=== PATIENT | male | born 1955 | race Caucasian/White ===

== ENCOUNTER 2016-11-25 08:19 | Emergency (ER) | payer BC ==
--- NOTE | 2016-11-25 08:32 | Emergency Department Record ---
History of Present Illness - General Chief Complaint: Chest Pain Stated Complaint: RIB PAIN LEFT SIDE Time Seen by Provider: 11/25/16 08:31 Source: Patient Mode of Arrival: Ambulatory Limitations: No limitations - History of Present Illness Initial Comments: The patient was coughing and sneezing yesterday and felt L lateral lower rib pain shortly after. It is a very mild dull pain when not moving but becomes sharp and stabbing with any movement to the R, or bending, twisting, or coughing. He denies any anterior L chest pain, SOB, VOI, sweating or nausea. The patient has no cardiac hx and no hx of CP with exertion, or SANTILLAN. MD Complaint: Other Onset/Timin -: Days(s) Onset: Other Pain Location: Left chest Severity: Moderate Quality: Sharp Consistency: Intermittent, Now resolved Improves With: Remaining still Worsens With: Movement, Palpation - Related Data Home Medications Medication Instructions Recorded Confirmed Last Taken Albuterol Sulfate [Proair Hfa] 2 puff INH ASDIR PRN 10/10/14 11/25/16 11/25/16 Amlodipine/Valsartan [Exforge 1 tab PO QPM 10/10/14 11/25/16 11/25/16 10-160 mg Tablet] Atorvastatin Calcium [Lipitor] 10 mg PO QPM 10/10/14 11/25/16 11/25/16 Albuterol Sulfate 0.083% [Neb] 3 ml NEB .EVERY 4-6 HOURS PRN 09/08/15 11/25/16 11/25/16 Aspirin Chewable 81 mg PO QPM 09/08/15 11/25/16 11/25/16 Meloxicam [Mobic] 15 mg PO DAILY 09/08/15 11/25/16 11/25/16 Tiotropium Br/Olodaterol HCl 4 gm IH DAILY PRN 07/25/16 11/25/16 11/25/16 [Stiolto Respimat Inhal [place]] Sitagliptin Phos/Metformin HCl 1 each PO DAILY 11/25/16 11/25/16 11/25/16 [Janumet Xr 50-500 mg Tablet] Previous Rx's Medication Instructions Recorded Hydrocodone/Acetaminophen [Percival 1 - 2 each PO QID #20 tablet 11/25/16 5-325 Tablet] Allergies Allergy/AdvReac Type Severity Reaction Status Date / Time No Known Drug Allergies Allergy Verified 11/25/16 08:24 Review of Systems Constitutional: Denies: Chills, Fever Eyes: Denies: Eye discharge ENT: Denies: Congestion Respiratory: Reports: Cough. Denies: Dyspnea Cardiovascular: Denies: Arrhythmia Past Medical History - SOCIAL HISTORY Smoking Status: Light tobacco smoker (<10/day) - RESPIRATORY Hx Asthma: Yes (good control with meds) - CARDIOVASCULAR Hx Hypertension: Yes (good control with med) - NEURO Hx Neuro Disorders: No - GI Hx GI Disorders: Yes - Hx Genitourinary Disorders: No - ENDOCRINE Hx Endocrine Disorders: No - MUSCULOSKELETAL Hx Arthritis: Yes (hands & lt hip pain) - PSYCH Hx Psych Problems: Yes - HEMATOLOGY/ONCOLOGY Hx Hematology/Oncology Disorders: No Family Medical History Family Hx Comment (NOT TO BE USED IN PLACE OF ITEMS BELOW): Pt. was adopted. Physical Exam - General General Appearance: Alert, Oriented x3, Cooperative, No acute distress - Head Head exam: Atraumatic, Normocephalic, Normal inspection - Eye Eye exam: Normal appearance, PERRL - ENT Throat exam: Normal inspection. negative: Tonsillar erythema, Tonsillar exudate - Neck Neck exam: Normal inspection, Full ROM. negative: Tenderness - Respiratory Respiratory exam: Normal lung sounds bilaterally, Chest wall tenderness (The pain is 100% reproducible with palpation of the L lower ribs T9-10 in the anterior axillary line.), Other (The pain is also reproduced with any coughing, bending forward or twisting to the R.). negative: Respiratory distress - Cardiovascular Cardiovascular Exam: Regular rate, Normal rhythm, Normal heart sounds - GI/Abdominal GI/Abdominal exam: Soft, Normal bowel sounds. negative: Tenderness - Extremities Extremities exam: Normal inspection, Full ROM, Normal capillary refill. negative: Tenderness Image of Full Body: 1 - Pain location with palpation. Course Vital Signs 11/25/16 08:29 Temperature 97.6 F Pulse Rate [ 64 Pulse Ox Probe] Respiratory 16 Rate Blood Pressure 179/92 [Left Arm] Pulse Ox 96 - Reevaluation(s) Reevaluation #1: The patient is doing well. I did discuss the EKG and xray results. We will place the patient on Percival for pain since he has had Mobic with mild side affects in the past. 11/25/16 09:42 Medical Decision Making - Data Complexity MDM Data: X-Ray Ordered and/or Reviewed, EKG Ordered and/or Reviewed - EKG Data -: EKG Interpreted by Me EKG: No Acute Changes, Unchanged From Previous - Radiology Data Radiology results: Report reviewed (L Ribs and chest: No acute dz process.) Disposition Disposition: Discharge Clinical Impression: Rib Pain on Left Side Disposition: Home, Self-Care Condition: (1) Good Instructions: Chest Wall Pain (ED) Additional Instructions: Please take the Percival for pain. Please see your PCP if not better in 2-3 days. Return to the ER for any increased pain, fever, worsening cough or any trouble breathing. Prescriptions: Hydrocodone/Acetaminophen [Percival 5-325 Tablet] 1 - 2 each PO QID #20 tablet Forms: Patient Portal Access Time of Disposition: 09:45
--- NOTE | 2016-11-28 15:19 | RADIOLOGY REPORT ---
EXAM: LEFT RIB SERIES HISTORY: PATIENT HAS LEFT SIDED RIB PAIN. TECHNIQUE: AP view of the chest and four views of the left ribs were provided along with the comparison x-ray of the chest dated 07/25/16. FINDINGS: The cardiomediastinal silhouette is within normal limits for size and contour. The desmond appear unremarkable. There is no radiographic evidence of a focal infiltrate or pleural effusion. No pneumothorax is noted. There is no radiographic evidence of a fracture or dislocation of the left ribs. IMPRESSION: NO RADIOGRAPHIC EVIDENCE OF AN ACUTE INTRATHORACIC PROCESS OR FRACTURE OR DISLOCATION OF THE LEFT RIBS. IF THERE IS FURTHER CLINICAL CONCERN THEN A BONE SCAN CAN BE OBTAINED FOR FURTHER EVALUATION. JOB NUMBER: [id number] MTDD
== END 2016-11-25 09:59 | disposition home or self-care (01) ==
LOC: ER 08:19
DX: R07.81 Pleurodynia (principal); R05 Cough; I10 Essential (primary) hypertension
CPT/HCPCS: 93005; 93010; 99284

== ENCOUNTER 2017-03-30 02:02 | Emergency (ER) | payer BC ==
[2017-03-30] MEDS ORDERED: IPRATROPIUM/ALBUTEROL (0.5MG/3MG) NEB INH ONE (02:10)
[2017-03-30] MEDS ORDERED: AZITHROMYCIN 500 MG TABLET PO ONE (02:10)
[2017-03-30] MEDS ORDERED: METHYLPREDNISOLONE PF 125MG/VIAL IM ONE (02:10)
--- NOTE | 2017-03-30 02:16 | Emergency Department Record ---
History of Present Illness - General Stated Complaint: COUGH Time Seen by Provider: 03/30/17 02:04 Source: Patient Mode of Arrival: Ambulatory Limitations: No limitations - History of Present Illness Initial Comments: 62 yo male with a history of COPD presents with cough with yellow sputum for 2 days. No fevers. No hemoptysis. He was formerly a heavy smoker but now rarely smokes. No nausea, vomiting or diarrhea. No chest pain. It does hurt or feel raw to cough. He has had a prior history of pneumonia. MD Complaint: Cough, Shortness of breath -: Days(s) (2) Severity: Moderate Consistency: Constant Improves With: Nothing Worsens With: Coughing Known History Of: COPD Context: Allergen exposure (worsened after mowing the yard) Associated Symptoms: Cough - Related Data Home Medications Medication Instructions Recorded Confirmed Last Taken Albuterol Sulfate [Proair Hfa] 2 puff INH ASDIR PRN 10/10/14 03/30/17 03/29/17 Amlodipine/Valsartan [Exforge 1 tab PO QPM 10/10/14 03/30/17 03/29/17 10-160 mg Tablet] Atorvastatin Calcium [Lipitor] 10 mg PO QPM 10/10/14 03/30/17 03/29/17 Albuterol Sulfate 0.083% [Neb] 3 ml NEB .EVERY 4-6 HOURS PRN 09/08/15 03/30/17 03/29/17 Aspirin Chewable 81 mg PO QPM 09/08/15 03/30/17 03/29/17 Meloxicam [Mobic] 15 mg PO DAILY 09/08/15 03/30/17 03/29/17 Tiotropium Br/Olodaterol HCl 4 gm IH DAILY PRN 07/25/16 03/30/17 03/29/17 [Stiolto Respimat Inhal [place]] Sitagliptin Phos/Metformin HCl 1 each PO DAILY 11/25/16 03/30/17 03/29/17 [Janumet Xr 50-500 mg Tablet] Previous Rx's Medication Instructions Recorded Albuterol Sulfate [Proair 90 mcg IH Q4H PRN #1 aer.[email or web address] 03/30/17 Respiclick] Azithromycin [Zithromax] 250 mg PO DAILY #4 tablet 03/30/17 Prednisone [Prednisone 20Mg] 20 mg PO BID #10 tab 03/30/17 Allergies Allergy/AdvReac Type Severity Reaction Status Date / Time No Known Drug Allergies Allergy Verified 11/25/16 08:24 Review of Systems Constitutional: Denies: Chills, Fever, Malaise, Night sweats, Weakness Eyes: Denies: Eye discharge, Eye pain, Photophobia, Vision change ENT: Reports: Congestion. Denies: Throat pain Respiratory: Reports: Cough, Wheezes. Denies: Hemoptysis Cardiovascular: Denies: Chest pain, Palpitations, Syncope Endocrine: Denies: Fatigue Gastrointestinal: Denies: Abdominal pain, Diarrhea, Nausea, Vomiting Genitourinary: Denies: Dysuria, Frequency, Hematuria Musculoskeletal: Denies: Arthralgia, Back pain, Joint swelling, Myalgia, Neck pain Skin: Denies: Bruising, Change in color, Rash Neurological: Denies: Headache, Numbness, Weakness Psychiatric: Denies: Anxiety Hematological/Lymphatic: Denies: Blood Clots, Easy bleeding, Easy bruising, Swollen glands Past Medical History - SOCIAL HISTORY Smoking Status: Light tobacco smoker (<10/day) - RESPIRATORY Hx Asthma: Yes (good control with meds) - CARDIOVASCULAR Hx Hypertension: Yes (good control with med) - NEURO Hx Neuro Disorders: No - GI Hx GI Disorders: Yes - Hx Genitourinary Disorders: No - ENDOCRINE Hx Endocrine Disorders: No - MUSCULOSKELETAL Hx Arthritis: Yes (hands & lt hip pain) - PSYCH Hx Psych Problems: Yes - HEMATOLOGY/ONCOLOGY Hx Hematology/Oncology Disorders: No Family Medical History Family Hx Comment (NOT TO BE USED IN PLACE OF ITEMS BELOW): Pt. was adopted. Physical Exam - General General Appearance: Alert, Oriented x3, Cooperative, No acute distress, Other ( No conversational dyspnea) Limitations: No limitations - Head Head exam: Normal inspection - Eye Eye exam: Normal appearance. negative: Conjunctival injection, Periorbital swelling - ENT ENT exam: Normal exam, Mucous membranes moist, Normal orophraynx Ear exam: Normal external inspection Nasal Exam: Normal inspection Mouth exam: Normal external inspection Teeth exam: Normal inspection - Neck Neck exam: Normal inspection, Full ROM. negative: Tenderness - Respiratory Respiratory exam: Decreased breath sounds, Prolonged expiratory, Wheezes, Other (speeks in full sentences). negative: Normal lung sounds bilaterally, Accessory muscle use, Respiratory distress, Rhonchi, Stridor - Cardiovascular Cardiovascular Exam: Regular rate, Normal rhythm, Normal heart sounds - GI/Abdominal GI/Abdominal exam: Soft. negative: Tenderness - Rectal Rectal exam: Deferred - exam: Deferred - Extremities Extremities exam: Normal inspection, Full ROM, Normal capillary refill. negative: Pedal edema, Tenderness - Neurological Neurological exam: Alert, Normal gait, Oriented X3, Reflexes normal - Psychiatric Psychiatric exam: Normal affect, Normal mood - Skin Skin exam: Dry, Intact, Normal color, Warm Course - Reevaluation(s) Reevaluation #1: The patient was seen and examined for cough with yellow sputum with a Hx of COPD Duoneb, Solumedrol, and Zithromax ordered 03/30/17 02:15 Reevaluation #2: Mild wheeze after the Duoneb. Much improved. 03/30/17 02:27 Reevaluation #3: The CXR was preliminarily read by me. No acute process or infiltrate. 03/30/17 02:40 At DC the patient states he feels much improved. He does not feel labored or short of breath. He is ready for DC. 03/30/17 Disposition Disposition: Discharge Clinical Impression: COPD exacerbation Disposition: Home, Self-Care Condition: (1) Good Instructions: COPD (Chronic Obstructive Pulmonary Disease) (ED) Additional Instructions: Call Dr Perez for close follow up of you ER visit Return if worse, fever, short of breath or any new symptoms or concerns Prescriptions: Albuterol Sulfate [Proair [place]] 90 mcg IH Q4H PRN #1 aer.pow.ba PRN Reason: Wheezing Azithromycin [Zithromax] 250 mg PO DAILY #4 tablet Prednisone [Prednisone 20Mg] 20 mg PO BID #10 tab Forms: Patient Portal Access Time of Disposition: 02:41
--- NOTE | 2017-04-01 16:10 | RADIOLOGY REPORT ---
DATE: 03/30/2017. EXAM: TWO-VIEW CHEST. HISTORY: Cough. TECHNIQUE: Frontal and lateral views of the chest. COMPARISON: Chest dated 11/25/2016. FINDINGS: The heart size is normal. The lungs are clear. No pneumothorax. IMPRESSION: NEGATIVE CHEST. JOB NUMBER: [id number] MTDD
== END 2017-03-30 03:05 | disposition home or self-care (01) ==
LOC: ER 02:02
DX: J44.1 Chronic obstructive pulmonary disease with (acute) exacerbation (principal); R06.02 Shortness of breath; F17.210 Nicotine dependence, cigarettes, uncomplicated
CPT/HCPCS: 71020; 94640; 96372; 99283; 99284; J2930

== ENCOUNTER 2017-11-26 01:55 | Emergency (ER) | payer BC ==
[2017-11-26] MEDS ORDERED: AZITHROMYCIN 500 MG TABLET PO ONE (02:03)
[2017-11-26] MEDS ORDERED: PREDNISONE 20 MG TAB PO ONE (02:03)
--- NOTE | 2017-11-26 02:06 | Emergency Department Record ---
History of Present Illness - General Chief complaint: ENT Stated complaint: CONGESTED Time Seen by Provider: 11/26/17 02:03 Source: Patient Mode of Arrival: Ambulatory Limitations: No limitations - History of Present Illness Initial comments: 62 yo male presents to ED for evaluation of "bronchitis". Patient reports a history of COPD and asthma, reports that he has the same symptoms 1-2 times a year. Patient reports night sweats, denies fevers, chills, or productive cough symptoms. MD complaint: Other Onset/Timin -: Days(s) Severity: Moderate Consistency: Intermittent Improves with: Other (Nebulizer) Worsens with: None Associated Symptoms: Cough - Related Data Previous Rx's Medication Instructions Recorded Azithromycin [Zithromax] 250 mg PO DAILY #4 tablet 11/26/17 Prednisone [Prednisone 20Mg] 20 mg PO TID #12 tab 11/26/17 Allergies Allergy/AdvReac Type Severity Reaction Status Date / Time No Known Drug Allergies Allergy Verified 11/25/16 08:24 Review of Systems Constitutional: Denies: Chills, Fever, Malaise, Night sweats Eyes: Denies: Eye discharge, Eye pain ENT: Reports: Congestion. Denies: Ear pain Respiratory: Reports: Cough, Wheezes. Denies: Dyspnea Cardiovascular: Denies: Chest pain, Dyspnea on exertion Endocrine: Denies: Fatigue, Heat or cold intolerance Gastrointestinal: Denies: Abdominal pain, Nausea, Vomiting Genitourinary: Denies: Incontinence, Retention Musculoskeletal: Denies: Arthralgia, Back pain, Gout, Joint swelling Skin: Denies: Bruising, Change in color Neurological: Denies: Abnormal gait, Confusion, Headache, Seizure Psychiatric: Denies: Anxiety Hematological/Lymphatic: Denies: Anemia, Blood Clots Past Medical History - SOCIAL HISTORY Smoking Status: Light tobacco smoker (<10/day) - RESPIRATORY Hx Asthma: Yes (good control with meds) - CARDIOVASCULAR Hx Hypertension: Yes (good control with med) - NEURO Hx Neuro Disorders: No - GI Hx GI Disorders: Yes - Hx Genitourinary Disorders: No - ENDOCRINE Hx Endocrine Disorders: No - MUSCULOSKELETAL Hx Arthritis: Yes (hands & lt hip pain) - PSYCH Hx Psych Problems: Yes - HEMATOLOGY/ONCOLOGY Hx Hematology/Oncology Disorders: No Family Medical History Family Hx Comment (NOT TO BE USED IN PLACE OF ITEMS BELOW): Pt. was adopted. Physical Exam - General General Appearance: Alert, Oriented x3, Cooperative, No acute distress Limitations: No limitations - Head Head exam: Atraumatic, Normocephalic, Normal inspection Head exam detail: negative: Abrasion, Contusion, Soto's sign, General tenderness, Hematoma, Laceration - Eye Eye exam: Normal appearance. negative: Conjunctival injection, Periorbital swelling, Periorbital tenderness, Scleral icterus - ENT Ear exam: negative: Auricular hematoma, Auricular trauma Nasal Exam: negative: Active bleeding, Discharge, Dried blood, Foreign body Mouth exam: negative: Drooling, Laceration, Tongue elevation - Neck Neck exam: Normal inspection. negative: Meningismus, Tenderness - Respiratory Respiratory exam: Decreased breath sounds, Wheezes. negative: Rales, Respiratory distress, Rhonchi, Stridor - Cardiovascular Cardiovascular Exam: Regular rate, Normal rhythm, Normal heart sounds - GI/Abdominal GI/Abdominal exam: Soft. negative: Distended, Rebound, Rigid, Tenderness - Rectal Rectal exam: Deferred - exam: Deferred - Extremities Extremities exam: Normal inspection. negative: Pedal edema, Tenderness - Back Back exam: Denies: CVA tenderness (R), CVA tenderness (L) - Neurological Neurological exam: Alert, Normal gait, Oriented X3 - Psychiatric Psychiatric exam: Normal affect, Normal mood - Skin Skin exam: Normal color. negative: Abrasion Type of lesion: negative: abrasion Course - Reevaluation(s) Reevaluation #1: 11/26/17 02:09 Patient has no respiratory distress on examination, symptoms appear c/w bronchitis. Will treat with Zithromax and Prednisone as directed, reports that he has nebulizer and albuterol at home. Disposition Disposition: Discharge Clinical Impression: Bronchitis Disposition: Home, Self-Care Condition: (2) Stable Instructions: Acute Bronchitis (ED) Additional Instructions: Return to ED if your symptoms worsen or if you have any concerns. Prednisone and Zithromax as directed. Follow-up with your family doctor in 3-5 days as directed. Prescriptions: Azithromycin [Zithromax] 250 mg PO DAILY #4 tablet Prednisone [Prednisone 20Mg] 20 mg PO TID #12 tab Forms: Patient Portal Access Time of Disposition: 02:06 Quality - Quality Measures Quality Measures: N/A - Blood Pressure Screening Does Patient Have Any of the Following: Active Dx of HTN Systolic Measurement: ~ Screening for High Blood Pressure: Patient Exclusion, Hx of HTN [U0991]
[2017-11-26] MEDS ORDERED: IPRATROPIUM/ALBUTEROL (0.5MG/3MG) NEB INH ONE (02:19)
== END 2017-11-26 02:40 | disposition home or self-care (01) ==
LOC: ER 01:55
DX: J20.9 Acute bronchitis, unspecified (principal); I10 Essential (primary) hypertension; F17.210 Nicotine dependence, cigarettes, uncomplicated
CPT/HCPCS: 99283 ×2; 94640; J7512

== ENCOUNTER 2017-12-29 05:32 | Emergency (ER) | payer BC ==
[2017-12-29] MEDS ORDERED: MECLIZINE 25 MG TABLET PO ONE (05:57)
[2017-12-29] MEDS ORDERED: 0.9 % SODIUM CHLORIDE 1,000 ML BAG IV ONE (05:57)
--- NOTE | 2017-12-29 05:58 | Emergency Department Record ---
History of Present Illness - General Chief Complaint: Dizziness Stated Complaint: DIZZINESS Time Seen by Provider: 12/29/17 05:51 Source: Patient Mode of Arrival: Ambulatory Limitations: No limitations - History of Present Illness Initial Comments: The patient is here due to waking up an hour ago and feeling dizzy. He describes it as a sense of his balance being off. The symptoms seem to be worse with turning his head to the L. He denies any arm or leg numbness, weakness, [place] , visual changes, trouble with his speech or difficulty swallowing. The patient also denies any CP, SOB, OVI, or head trauma. He has had similar problems in the past and was told it was Vertigo. The patient did drive here to the ER with no difficulty. MD Complaint: Dizziness Onset/Timin -: Minutes(s) Timing: Awoke with symptoms, Sudden onset Description: Difficulty walking, Sense of movement Severity: Moderate Improves With: Nothing Worsens With: Nothing - [place] Coma Scale Eye Response: (4) Open spontaneously Motor Response: (6) Obeys commands Verbal Response: (5) Oriented [place] Total: 15 - Related Data Previous Rx's Medication Instructions Recorded Meclizine HCl [Antivert] 25 mg PO Q8H #21 tablet 12/29/17 Allergies Allergy/AdvReac Type Severity Reaction Status Date / Time No Known Drug Allergies Allergy Verified 11/25/16 08:24 Travel Screening - Travel/Exposure Within Last 30 Days Have you traveled within the last 30 days?: No Review of Systems Constitutional: Denies: Chills, Fever Eyes: Denies: Eye discharge ENT: Denies: Congestion Respiratory: Denies: Cough, Dyspnea Past Medical History - SOCIAL HISTORY Smoking Status: Light tobacco smoker (<10/day) Alcohol Use: None Drug Use: None - RESPIRATORY Hx Respiratory Disorders: Yes Hx Asthma: Yes (good control with meds) - CARDIOVASCULAR Hx Cardio Disorders: Yes Hx Hypertension: Yes (good control with med) - NEURO Hx Neuro Disorders: No - GI Hx GI Disorders: Yes Hx Abdominal Pain: Yes (umbilical hernia "ruptured") - Hx Genitourinary Disorders: No - ENDOCRINE Hx Endocrine Disorders: No Hx Diabetes: Yes - MUSCULOSKELETAL Hx Musculoskeletal Disorders: Yes Hx Arthritis: Yes (hands & lt hip pain) - PSYCH Hx Psych Problems: Yes Hx Anxiety: Yes ("occasionally") - HEMATOLOGY/ONCOLOGY Hx Hematology/Oncology Disorders: No Family Medical History Any Significant Family History?: No Family Hx Comment (NOT TO BE USED IN PLACE OF ITEMS BELOW): Pt. was adopted. Physical Exam - General General Appearance: Alert, Oriented x3, Cooperative, No acute distress - Head Head exam: Atraumatic, Normocephalic, Normal inspection - Eye Eye exam: Normal appearance, PERRL, EOMI, Nystagmus (to the L.) - ENT ENT exam: Normal exam, Mucous membranes moist, Normal external ear exam, Normal orophraynx, TM's normal bilaterally Throat exam: Normal inspection. negative: Tonsillar erythema, Tonsillar exudate - Neck Neck exam: Normal inspection, Full ROM, Other (Neg carotid bruits.). negative: Tenderness - Respiratory Respiratory exam: Normal lung sounds bilaterally. negative: Respiratory distress - Cardiovascular Cardiovascular Exam: Regular rate, Normal rhythm, Normal heart sounds - GI/Abdominal GI/Abdominal exam: Soft, Normal bowel sounds. negative: Tenderness - Extremities Extremities exam: Normal inspection, Full ROM, Normal capillary refill. negative: Tenderness - Neurological Neurological exam: Alert, Normal gait, Oriented X3, Reflexes normal, Other (Neg drift or rhomberg exams.). negative: Abnormal gait, Altered, Motor sensory deficit Course Vital Signs 12/29/17 05:36 Temperature 97.5 F L Pulse Rate 74 Respiratory 20 Rate Blood Pressure 178/96 Pulse Ox 94 L - Reevaluation(s) Reevaluation #1: The patient is doing better at this time. He is about 50% improved and is able to move his head around with very little dizziness presently. 12/29/17 06:30 Reevaluation #2: The patient is doing a lot better at this time. His dizziness is now 90% resolved and he is able to get up from the bed with no difficulty or balance issues. I did discuss the liver enzyme abnormality with him and the need for F/ U with his PCP. 12/29/17 06:42 Medical Decision Making - Data Complexity MDM Data: Labs Ordered and/or Reviewed, X-Ray Ordered and/or Reviewed, EKG Ordered and/or Reviewed - Lab Data Result diagrams: 12/29/17 06:00 12/29/17 06:00 - EKG Data -: EKG Interpreted by Me EKG: No Acute Changes, Unchanged From Previous - Radiology Data Radiology results: Report reviewed (Head CT: Neg) Disposition Disposition: Discharge Clinical Impression: Vertigo Disposition: Home, Self-Care Condition: (2) Stable Instructions: Dizziness (ED) Additional Instructions: Please continue your regular medicines and use the Antivert as directed. Please see your family doctor next week for recheck and to have your liver enzymes abnormality evaluated further. Return to the ER for any worsening symptoms. Prescriptions: Meclizine HCl [Antivert] 25 mg PO Q8H #21 tablet Forms: Patient Portal Access Time of Disposition: 06:45 Quality - Quality Measures Quality Measures: N/A - Blood Pressure Screening View Details: Yes Does Patient Have Any of the Following: Active Dx of HTN Blood Pressure Classification: Hypertensive Reading Systolic Measurement: 178 Diastolic Measurement: 96 Screening for High Blood Pressure: Patient Exclusion, Hx of HTN [G9744]
[2017-12-29 06:09] LABS: BASO % 0.6 % (0-6); EOS % 3.4 % (0-6); GRAN % 57.1 % (47-80); HEMATOCRIT 46.7 % (42.0-52.0); HEMOGLOBIN 15.7 gm/dl (14.0-18.0); LYMPH % 28.8 % (16-45); MEAN CELL VOLUME 92.5 fl (81-97); MEAN CORPUSCULAR HEMOGLOBIN 31.1 pg (27-33); MEAN CORPUSCULAR HGB CONC 33.6 g/dl (32-36); MEAN PLATELET VOLUME 8.8 fl (7.4-10.4); MONO % 10.1 % (0-9); PLATELET COUNT 250 K/uL (130-400); RED BLOOD COUNT 5.05 M/uL (4.40-5.70); RED CELL DISTRIBUTION WIDTH 12.9 % (11.5-14.5); WHITE BLOOD COUNT W/O DIFF 8.6 K/uL (4.2-12.2)
[2017-12-29 06:23] LABS: BLOOD UREA NITROGEN 11 mg/dL (8-23); CREATININE 0.9 mg/dL (0.7-1.2); EST GLOMERULAR FILTRATION RATE > 60 mL/min; TOTAL PROTEIN 6.8 g/dL (6.6-8.7)
[2017-12-29 06:25] LABS: GLUCOSE,RANDOM 135 mg/dL (74-109)
[2017-12-29 06:28] LABS: ALB/GLOB RATIO 1.8 (1.1-1.8); ALBUMIN 4.4 g/dL (4.0-5.0); ALKALINE PHOSPHATASE 86 U/L (40-129); ALT/SGPT 93 U/L (<41); AST/SGOT 51 U/L (10.0-50.0)
--- NOTE | 2017-12-30 21:38 | CT SCAN REPORT ---
EXAM: CT SCAN HEAD WO CONTRAST HISTORY: PATIENT HAS DIZZINESS. TECHNIQUE: Serial axial CT scan of the head was performed at 2.5 mm intervals from the base of the skull to the apex without the use of intravenous contrast. COMPARISON: Comparison CT scan of the neck dated 11/14/2013 is provided. FINDINGS: The ventricles, cisterns, sulci appear within normal limits for size , shape, and attenuation. There is no mass or mass effect. Mild subcortical white matter chronic small vessel ischemic changes are identified. There is no CT evidence of intra or extraaxial fluid to suggest bleeding. Bone windows demonstrate no CT evidence of a fracture or dislocation of the skull. Paranasal sinuses are unremarkable. IMPRESSION: MILD CHRONIC SMALL VESSEL ISCHEMIC CHANGES ARE NOTED WITHOUT CT EVIDENCE OF AN ACUTE INTRACRANIAL PROCESS. JOB [facility]BER: [id number] [facility]
== END 2017-12-29 07:06 | disposition home or self-care (01) ==
LOC: ER 05:32
DX: R42 Dizziness and giddiness (principal); E11.9 Type 2 diabetes mellitus without complications; I10 Essential (primary) hypertension; F17.210 Nicotine dependence, cigarettes, uncomplicated
CPT/HCPCS: 70450; 80053; 85025; 93005; 93010; 99284; J7030

== ENCOUNTER 2018-02-08 19:55 | Emergency (ER) | payer BC ==
[2018-02-08] MEDS ORDERED: KETOROLAC 30 MG/ML VIAL IVP ONE (20:04)
[2018-02-08] MEDS ORDERED: ONDANSETRON HCL IV 4 MG/2 ML VIAL IVP ONE (20:04)
--- NOTE | 2018-02-08 20:07 | Emergency Department Record ---
History of Present Illness - General Chief complaint: Flank Pain Stated complaint: KIDNEY PAIN Time Seen by Provider: 02/08/18 20:02 Source: Patient Mode of Arrival: Ambulatory Limitations: No limitations - History of Present Illness Initial comments: 63 yo male presents to ED for evaluation of right sided flank pain symptoms that began approximately 25 minutes ago. Patient reports that his symptoms began suddenly, rates his pain at 7/10. Patient reports similar symptoms previously, denies fevers, chills, nausea, or vomiting symptoms. Patient reports previous jonathan/appy and umbilical hernia repair. Patient also denies taking any medication for his pain symptoms prior to arrival. MD Complaint: Other Onset/Timin -: Minutes(s) Location: Right flank Radiation: RLQ Severity: Moderate Severity scale (1-10): 7 Quality: Aching Consistency: Constant Improves with: None Worsens with: None Reports: Denies other symptoms - Related Data Previous Rx's Medication Instructions Recorded Meclizine HCl [Antivert] 25 mg PO Q8H #21 tablet 12/29/17 Hydrocodone/Acetaminophen [[place] 1 each PO Q6H PRN #15 tablet 02/08/18 5-325 Tablet] Tamsulosin HCl [Flomax] 0.4 mg PO DAILY #10 cap.er.24h 02/08/18 Allergies Allergy/AdvReac Type Severity Reaction Status Date / Time No Known Drug Allergies Allergy Verified 11/25/16 08:24 Review of Systems Constitutional: Denies: Chills, Fever, Malaise, Night sweats Eyes: Denies: Eye discharge, Eye pain ENT: Denies: Congestion, Ear pain Respiratory: Denies: Cough, Dyspnea Cardiovascular: Denies: Chest pain, Dyspnea on exertion Endocrine: Denies: Fatigue, Heat or cold intolerance Gastrointestinal: Reports: Abdominal pain. Denies: Constipation, Nausea, Vomiting Genitourinary: Denies: Incontinence, Retention Musculoskeletal: Reports: Back pain. Denies: Arthralgia, Gout, Joint swelling Skin: Denies: Bruising, Change in color Neurological: Denies: Abnormal gait, Confusion, Headache, Seizure Psychiatric: Denies: Anxiety Hematological/Lymphatic: Denies: Anemia, Blood Clots Past Medical History - SOCIAL HISTORY Smoking Status: Light tobacco smoker (<10/day) Drug Use: None - RESPIRATORY Hx Respiratory Disorders: Yes Hx Asthma: Yes (good control with meds) - CARDIOVASCULAR Hx Cardio Disorders: Yes Hx Hypertension: Yes (good control with med) - NEURO Hx Neuro Disorders: No - GI Hx GI Disorders: Yes Hx Abdominal Pain: Yes (umbilical hernia "ruptured") - Hx Genitourinary Disorders: No - ENDOCRINE Hx Endocrine Disorders: No Hx Diabetes: Yes - MUSCULOSKELETAL Hx Musculoskeletal Disorders: Yes Hx Arthritis: Yes (hands & lt hip pain) - PSYCH Hx Psych Problems: Yes Hx Anxiety: Yes ("occasionally") - HEMATOLOGY/ONCOLOGY Hx Hematology/Oncology Disorders: No Family Medical History Family Hx Comment (NOT TO BE USED IN PLACE OF ITEMS BELOW): Pt. was adopted. Physical Exam - General General Appearance: Alert, Oriented x3, Cooperative, Mild distress Limitations: No limitations - Head Head exam: Atraumatic, Normocephalic, Normal inspection Head exam detail: negative: Abrasion, Contusion, Soto's sign, General tenderness, Hematoma, Laceration - Eye Eye exam: Normal appearance. negative: Conjunctival injection, Periorbital swelling, Periorbital tenderness, Scleral icterus - ENT Ear exam: negative: Auricular hematoma, Auricular trauma Nasal Exam: negative: Active bleeding, Discharge, Dried blood, Foreign body Mouth exam: negative: Drooling, Laceration, Tongue elevation - Neck Neck exam: Normal inspection. negative: Meningismus, Tenderness - Respiratory Respiratory exam: Normal lung sounds bilaterally. negative: Rales, Respiratory distress, Rhonchi, Stridor - Cardiovascular Cardiovascular Exam: Regular rate, Normal rhythm, Normal heart sounds - GI/Abdominal GI/Abdominal exam: Soft. negative: Rebound, Rigid, Tenderness - Rectal Rectal exam: Deferred - exam: Deferred - Extremities Extremities exam: Normal inspection. negative: Pedal edema, Tenderness - Back Back exam: Reports: CVA tenderness (R). Denies: CVA tenderness (L) - Neurological Neurological exam: Alert, Normal gait, Oriented X3 - Psychiatric Psychiatric exam: Normal affect, Normal mood - Skin Skin exam: Normal color. negative: Abrasion Type of lesion: negative: abrasion Course Vital Signs 02/08/18 20:00 Temperature 97.7 F Pulse Rate [ 73 Pulse Ox Probe] Respiratory 24 Rate Blood Pressure 189/108 [Left Arm] Pulse Ox 96 - Reevaluation(s) Reevaluation #1: 02/08/18 20:50 Labs reviewed and are grossly unremarkable for an acute process, Creatinine 1.4. UA pending. CT Abdomen and Pelvis: 2.1 mm ureteral calculus right proximal ureter with mild hydronephrosis Patient reports improvement in his pain symptoms following Morphine IV. Awaiting UA result. Reevaluation #2: 02/08/18 21:05 UA reviewed and appears negative for infection. Patient reports that his pain symptoms are improved, and appears stable for discharge at this time. Medical Decision Making - Lab Data Result diagrams: 02/08/18 20:08 02/08/18 20:08 Disposition Disposition: Discharge Clinical Impression: Kidney stone on right side Disposition: Home, Self-Care Condition: (2) Stable Instructions: Kidney Stones (ED) Additional Instructions: Return to ED if your symptoms worsen or if you have any concerns. [place]idan and Flomax as directed. Follow-up with your family doctor in 3-5 days as directed. Prescriptions: Hydrocodone/Acetaminophen [[place] 5-325 Tablet] 1 each PO Q6H PRN #15 tablet PRN Reason: Pain - Moderate (5-7) Tamsulosin HCl [Flomax] 0.4 mg PO DAILY #10 cap.er.24h Forms: Patient Portal Access Time of Disposition: 21:05 Quality - Quality Measures Quality Measures: N/A - Blood Pressure Screening Does Patient Have Any of the Following: Active Dx of HTN Blood Pressure Classification: Hypertensive Reading Systolic Measurement: 174 Diastolic Measurement: 94 Screening for High Blood Pressure: Patient Exclusion, Hx of HTN [G9744]
[2018-02-08 20:15] LABS: BASO % 0.7 % (0-6); EOS % 4.3 % (0-6); GRAN % 53.8 % (47-80); HEMATOCRIT 47.4 % (42.0-52.0); HEMOGLOBIN 15.7 gm/dl (14.0-18.0); LYMPH % 29.9 % (16-45); MEAN CELL VOLUME 94.4 fl (81-97); MEAN CORPUSCULAR HEMOGLOBIN 31.3 pg (27-33); MEAN CORPUSCULAR HGB CONC 33.1 g/dl (32-36); MONO % 11.3 % (0-9); PLATELET COUNT 257 K/uL (130-400); RED BLOOD COUNT 5.02 M/uL (4.40-5.70); RED CELL DISTRIBUTION WIDTH 13.1 % (11.5-14.5); WHITE BLOOD COUNT W/O DIFF 10.7 K/uL (4.2-12.2)
[2018-02-08] MEDS ORDERED: 0.9 % SODIUM CHLORIDE 1000ML 1,000 ML IV SCH (20:15)
[2018-02-08 20:24] LABS: BILIRUBIN,TOTAL 0.3 mg/dL (0.2-1.0); CREATININE 1.4 mg/dL (0.7-1.2); TOTAL PROTEIN 7.1 g/dL (6.6-8.7)
[2018-02-08 20:29] LABS: ALBUMIN 4.7 g/dL (4.0-5.0)
[2018-02-08] MEDS ORDERED: MORPHINE SULFATE 4MG/ML PREFILLED SYRINGE IVP ONE (20:30)
[2018-02-08] MEDS ORDERED: TAMSULOSIN HCL 0.4 MG CAP.ER.24H PO ONE (20:30)
[2018-02-08 20:55] LABS: URINE APPEARANCE CLEAR; URINE BILIRUBIN NEGATIVE (NEGATIVE); URINE BLOOD SMALL (NEGATIVE); URINE COLOR YELLOW; URINE GLUCOSE (UA) NEGATIVE (NEGATIVE); URINE KETONE NEGATIVE (NEGATIVE); URINE LEUKOCYTE ESTERASE NEGATIVE (NEGATIVE); URINE NITRITE NEGATIVE (NEGATIVE); URINE PROTEIN NEGATIVE (NEGATIVE); URINE UROBILINOGEN 0.2 E.U./dL (0.20 - 1.00)
[2018-02-08 20:59] LABS: URINE RBC 0 - 2 (NONE SEEN); URINE WBC 0 - 2 (0-2/hpf)
[2018-02-08 21:00] LABS: URINE AMORPHOUS SEDIMENT 1+
[2018-02-08] MEDS ORDERED: HYDROCODONE/APAP 5/325MG TABLET PO ONE (21:15)
--- NOTE | 2018-02-10 15:12 | CT SCAN REPORT ---
DATE: 02/08/2018 at 2021. EXAM: CT OF THE ABDOMEN AND PELVIS WITHOUT CONTRAST. HISTORY: Right flank pain beginning 25 minutes ago. TECHNIQUE: Thin-collimation helical CT examination of the abdomen and pelvis is performed without oral or intravenous contrast administration for the express purpose of evaluating the renal collecting systems for obstructing calculus. Lack of oral and intravenous contrast utilization limits evaluation of the bowel and solid viscera respectively. COMPARISON: CT of the abdomen and pelvis without contrast dated 01/24/2012. FINDINGS: There is minor dependent atelectasis in each lung base. The heart is not enlarged. A prosthetic aortic valve is identified. There is no pleural or pericardial effusion. There is diffuse decreased density of the liver relative to the spleen consistent with steatosis. A subtle, wedge-shaped area of hypodensity in the central left liver lobe adjacent to the fissure of the falciform ligament is identified and measures 11 x 11 mm. This was more distinct on the prior examination, though it is not changed in size. This is consistent with either a cyst or focal fatty infiltration. There is a hypodense lesion within the inferior aspect of the lateral segment of the left liver lobe measuring 1.6 x 1.3 cm. This has fluid density. It is likely a cyst. On the prior examination , this measured 5.0 mm. Additionally, there is a fluid density mass measuring 1.7 x 1.5 cm, slightly enlarged in the interval. This is also likely a cyst or hemangioma. There is a calcified granuloma in the medial aspect of the posterior segment of the mid to lower right liver lobe. No other focal hepatic lesion identified. The gallbladder is surgically absent. No biliary ductal dilatation is identified. Healed granulomatous disease is demonstrated within an otherwise normal- appearing spleen. The pancreas and adrenal glands are normal in appearance. The kidneys remain normal in size and position. Mild bilateral perinephric fat stranding persists. There is a 2.0 to 3.0 mm nonobstructing calculus in the lower pole of the left kidney. No other nephrolithiasis nor renal mass. There is mild prominence of the proximal right renal collecting system down to the junction of the proximal and mid portions of the ureter where there is an obstructing calculus measuring 2.1 mm. No other ureteral calculus. No intrinsic urinary bladder abnormality is seen. The prostate gland is mildly enlarged. No pelvic mass, lymphadenopathy, nor free pelvic fluid. There is mild fat-density prominence in the left inguinal canal consistent with spermatic cord lipoma or fat within a small inguinal hernia sac. This is stable. There is a small umbilical hernia containing fat and a short segment of bowel. This appears uncomplicated. No gross bowel dilatation nor bowel wall thickening. There are a few nonenlarged to borderline enlarged lymph nodes in the gastrohepatic ligament and periportal regions. These are nonspecific but are likely reactive. No lytic or blastic bone lesion. There are mild degenerative changes scattered throughout the visualized spine. IMPRESSION: 1. A 2.1 MM OBSTRUCTING CALCULUS IN THE PROXIMAL TO MID RIGHT URETER CAUSING MINOR UPSTREAM DILATATION. 2. A 2.0 TO 3.0 MM NONOBSTRUCTING CALCULUS IN THE LOWER POLE OF THE LEFT KIDNEY. 3. NOT MENTIONED ABOVE IS A 1.0 MM NONOBSTRUCTING CALCULUS IN THE LEFT MID KIDNEY. 4. 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 5. HEPATIC STEATOSIS. A SMALL HYPODENSE LESION WITHIN THE CENTRAL LEFT LIVER LOBE WHICH APPEARS LESS DISTINCT; THOUGH IS NOT SIGNIFICANTLY CHANGED IN SIZE IN THE INTERVAL. THIS LIKELY RELATES TO A HEMANGIOMA, CYST, OR FOCAL FATTY INFILTRATION. TWO ADDITIONAL HYPODENSE LESIONS WITHIN THE LIVER ARE LIKELY CYSTS OR HEMANGIOMAS DISCUSSED ABOVE. 6. SMALL UMBILICAL HERNIA DISCUSSED ABOVE. 7. NOT MENTIONED ABOVE IS MILD DIVERTICULOSIS OF THE LEFT COLON WITHOUT EVIDENCE OF DIVERTICULITIS. 8. STATUS POST AORTIC VALVE REPLACEMENT. JOB NUMBER: [id number] MTDD
== END 2018-02-08 21:27 | disposition home or self-care (01) ==
LOC: ER 19:55
DX: N13.2 Hydronephrosis with renal and ureteral calculous obstruction (principal); I10 Essential (primary) hypertension; F17.210 Nicotine dependence, cigarettes, uncomplicated
CPT/HCPCS: 99284 ×2; 96374; 96375; 85025; 80053; 81001; 74176; J1885; J2405; J2274; J7030

== ENCOUNTER 2018-02-10 07:52 | Emergency (ER) | payer BC ==
[2018-02-10] MEDS ORDERED: 0.9 % SODIUM CHLORIDE 1,000 ML BAG IV ONE (08:07)
[2018-02-10] MEDS ORDERED: ONDANSETRON HCL IV 4 MG/2 ML VIAL IV ONE (08:07)
[2018-02-10] MEDS ORDERED: HYDROMORPHONE HCL 2 MG/ML VIAL IVP ONE ×2 (08:08→08:54)
--- NOTE | 2018-02-10 08:13 | Emergency Department Record ---
History of Present Illness - General Chief Complaint: Abdominal Pain Stated Complaint: ABDOMINAL PAIN Time Seen by Provider: 02/10/18 07:56 Source: Patient Mode of Arrival: Ambulatory Limitations: No limitations - History of Present Illness Initial Comments: The patient is here due to worsening R flank pain for 2 days. He was here in the ER 2 days ago and diagnosed with a 2.1 mm proximal R ureter stone. Since the pain is worsening and is associated with nausea but no vomiting or fever. The patient has had stones in the past but has always been able to pass them. MD Complaint: Abdominal pain Onset/Timin -: Days(s) Location: R Flank Radiation: R flank Consistency: Constant Improves With: Nothing Worsens With: Nothing Associated Symptoms: Denies other symptoms - Related Data Previous Rx's Medication Instructions Recorded Hydrocodone/Acetaminophen [[place] 1 each PO Q6H PRN #15 tablet 02/08/18 5-325 Tablet] Tamsulosin HCl [Flomax] 0.4 mg PO DAILY #10 cap.er.24h 02/08/18 Allergies Allergy/AdvReac Type Severity Reaction Status Date / Time No Known Drug Allergies Allergy Verified 11/25/16 08:24 Travel Screening - Travel/Exposure Within Last 30 Days Have you traveled within the last 30 days?: No - Travel/Exposure Within Last Year Have you traveled outside the [place] in the last year?: No - Additonal Travel Details Have you been exposed to anyone with a communicable illness?: No - Travel Symptoms Symptom Screening: None Review of Systems Constitutional: Denies: Chills, Fever Eyes: Denies: Eye discharge ENT: Denies: Congestion Respiratory: Denies: Cough, Dyspnea Past Medical History - SOCIAL HISTORY Smoking Status: Light tobacco smoker (<10/day) Alcohol Use: Rare Drug Use: Occasional Drug Use Detail:: Marijuana - RESPIRATORY Hx Respiratory Disorders: Yes Hx Asthma: Yes (good control with meds) - CARDIOVASCULAR Hx Cardio Disorders: Yes Hx Hypertension: Yes (good control with med) - NEURO Hx Neuro Disorders: No - GI Hx GI Disorders: Yes Hx Abdominal Pain: Yes (umbilical hernia "ruptured") - Hx Genitourinary Disorders: No - ENDOCRINE Hx Endocrine Disorders: No Hx Diabetes: Yes - MUSCULOSKELETAL Hx Musculoskeletal Disorders: Yes Hx Arthritis: Yes (hands & lt hip pain) - PSYCH Hx Psych Problems: Yes Hx Anxiety: Yes ("occasionally") - HEMATOLOGY/ONCOLOGY Hx Hematology/Oncology Disorders: No Family Medical History Any Significant Family History?: No Family Hx Comment (NOT TO BE USED IN PLACE OF ITEMS BELOW): Pt. was adopted. Physical Exam - General General Appearance: Alert, Oriented x3, Cooperative, No acute distress - Head Head exam: Atraumatic, Normocephalic, Normal inspection - Eye Eye exam: Normal appearance, PERRL - ENT Throat exam: Normal inspection. negative: Tonsillar erythema, Tonsillar exudate - Neck Neck exam: Normal inspection, Full ROM. negative: Tenderness - Respiratory Respiratory exam: Normal lung sounds bilaterally. negative: Respiratory distress - Cardiovascular Cardiovascular Exam: Regular rate, Normal rhythm, Normal heart sounds - GI/Abdominal GI/Abdominal exam: Soft, Normal bowel sounds. negative: Tenderness - Extremities Extremities exam: Normal inspection, Full ROM, Normal capillary refill. negative: Tenderness Course Vital Signs 02/10/18 07:55 Temperature 97.6 F Pulse Rate 79 Respiratory 16 Rate Blood Pressure 192/97 Pulse Ox 95 - Reevaluation(s) Reevaluation #1: The patient is doing better after the 2nd dose of Dilaudid. I did discuss the normal urine results and will consult with Urology. 02/10/18 09:13 Reevaluation #2: The patient is doing well at this time but is still having some pain. I did discuss the case with (Urology) and he would like the patient to be NPO and transferred to the ER at [facility] for a short stay admission. I then did discuss the case with Dr. Crocker in the ER and she does accept the patient for transfer. 02/10/18 09:27 Medical Decision Making - Data Complexity MDM Data: Labs Ordered and/or Reviewed - Lab Data Result diagrams: 02/10/18 08:05 02/10/18 08:05 Disposition Disposition: Transfer Clinical Impression: Kidney stone on right side Disposition: Acute Care Hospital Transfer Transfer To: [facility] Reason For Transfer: Urology Accepting Physician: Lizzette Time Discussed w/Accepting Physician: 09:29 Condition: (2) Stable Forms: Patient Portal Access Time of Disposition: 09:29 Quality - Quality Measures Quality Measures: N/A - Blood Pressure Screening View Details: Yes Does Patient Have Any of the Following: Active Dx of HTN Blood Pressure Classification: Hypertensive Reading Systolic Measurement: 161 Diastolic Measurement: 91 Screening for High Blood Pressure: Patient Exclusion, Hx of HTN [[id number]]
[2018-02-10 08:21] LABS: BASO % 0.3 % (0-6); EOS % 2.7 % (0-6); GRAN % 68.9 % (47-80); HEMATOCRIT 46.9 % (42.0-52.0); HEMOGLOBIN 15.7 gm/dl (14.0-18.0); LYMPH % 17.9 % (16-45); MEAN CELL VOLUME 94.6 fl (81-97); MEAN CORPUSCULAR HEMOGLOBIN 31.7 pg (27-33); MEAN CORPUSCULAR HGB CONC 33.5 g/dl (32-36); MEAN PLATELET VOLUME 9.1 fl (7.4-10.4); MONO % 10.2 % (0-9); PLATELET COUNT 236 K/uL (130-400); RED BLOOD COUNT 4.96 M/uL (4.40-5.70); RED CELL DISTRIBUTION WIDTH 13.1 % (11.5-14.5); WHITE BLOOD COUNT W/O DIFF 11.7 K/uL (4.2-12.2)
[2018-02-10 08:35] LABS: BLOOD UREA NITROGEN 17 mg/dL (8-23); CREATININE 1.1 mg/dL (0.7-1.2); EST GLOMERULAR FILTRATION RATE > 60 mL/min
[2018-02-10 08:37] LABS: GLUCOSE,RANDOM 181 mg/dL (74-109)
[2018-02-10 08:57] LABS: URINE APPEARANCE SL CLOUDY; URINE BILIRUBIN NEGATIVE (NEGATIVE); URINE BLOOD SMALL (NEGATIVE); URINE COLOR YELLOW; URINE GLUCOSE (UA) NEGATIVE (NEGATIVE); URINE KETONE NEGATIVE (NEGATIVE); URINE LEUKOCYTE ESTERASE NEGATIVE (NEGATIVE); URINE NITRITE NEGATIVE (NEGATIVE); URINE PROTEIN NEGATIVE (NEGATIVE); URINE UROBILINOGEN 0.2 E.U./dL (0.20 - 1.00)
[2018-02-10 09:06] LABS: URINE BACTERIA NONE SEEN; URINE EPITHELIAL CELLS 0 - 2 (FEW); URINE RBC 0 - 2 (NONE SEEN); URINE WBC NONE SEEN (0-2/hpf)
== END 2018-02-10 09:49 | disposition short-term general hospital (02) ==
LOC: ER 07:52
DX: N20.0 Calculus of kidney (principal); R10.31 Right lower quadrant pain; Z87.442 Personal history of urinary calculi; I10 Essential (primary) hypertension; F17.210 Nicotine dependence, cigarettes, uncomplicated
CPT/HCPCS: 99284 ×2; 96374; 96375; 85025; 80048; 81001; J2405; J1170; J7030

== ENCOUNTER 2018-03-10 19:27 | Emergency (ER) | payer BC ==
--- NOTE | 2018-03-10 19:44 | Emergency Department Record ---
History of Present Illness - General Chief complaint: Lower Extremity Pain Stated complaint: RT FOOT PAIN/SWELLING Time Seen by Provider: 03/10/18 19:29 Source: Patient Mode of Arrival: Ambulatory Limitations: No limitations - History of Present Illness Initial comments: 63 yo female presents to ED for evaluation of right foot pain for the past 1 week. Patient reports ankle inversion injury 1 week ago, but reports that his ankle now feels fine. Patient reports that his pain symptoms radiate from the lateral right foot up the distal portion of the right lower extremity. Patient denies fevers, chills, or redness to the area. MD Complaint: Extremity pain Onset/Timin -: Week(s) Location: Right, Foot History of Same: No -: Yes Arthralgia Severity scale (1-10): 4 Consistency: Intermittent Improves with: Rest Worsens with: Exertion, Walking, Weight bearing - Related Data Home Medications Medication Instructions Recorded Confirmed Last Taken Meclizine HCl [Antivert] 25 mg PO Q8H PRN 03/10/18 03/10/18 Unknown Previous Rx's Medication Instructions Recorded Hydrocodone/Acetaminophen [[place] 1 each PO Q6H PRN #15 tablet 02/08/18 5-325 Tablet] Tamsulosin HCl [Flomax] 0.4 mg PO DAILY #10 cap.er.24h 02/08/18 Allergies Allergy/AdvReac Type Severity Reaction Status Date / Time No Known Drug Allergies Allergy Verified 11/25/16 08:24 Travel Screening - Travel/Exposure Within Last 30 Days Have you traveled within the last 30 days?: No - Travel Symptoms Symptom Screening: None Review of Systems Constitutional: Denies: Chills, Fever, Malaise, Night sweats Eyes: Denies: Eye discharge, Eye pain ENT: Denies: Congestion, Ear pain, Epistaxis Respiratory: Denies: Cough, Dyspnea Cardiovascular: Denies: Chest pain, Dyspnea on exertion Endocrine: Denies: Fatigue, Heat or cold intolerance Gastrointestinal: Denies: Abdominal pain, Nausea, Vomiting Genitourinary: Denies: Incontinence, Retention Musculoskeletal: Reports: Arthralgia. Denies: Back pain, Gout, Joint swelling Skin: Denies: Bruising, Change in color Neurological: Denies: Abnormal gait, Confusion, Headache, Seizure Psychiatric: Denies: Anxiety Hematological/Lymphatic: Denies: Anemia, Blood Clots Past Medical History - SOCIAL HISTORY Smoking Status: Light tobacco smoker (<10/day) - RESPIRATORY Hx Respiratory Disorders: Yes Hx Asthma: Yes (good control with meds) - CARDIOVASCULAR Hx Cardio Disorders: Yes Hx Hypertension: Yes (good control with med) - NEURO Hx Neuro Disorders: Yes Hx Dizziness: Yes (Vertigo) - GI Hx GI Disorders: Yes Hx Abdominal Pain: Yes (umbilical hernia "ruptured") - Hx Genitourinary Disorders: No - ENDOCRINE Hx Endocrine Disorders: No Hx Diabetes: Yes - MUSCULOSKELETAL Hx Musculoskeletal Disorders: Yes Hx Arthritis: Yes (hands & lt hip pain) - PSYCH Hx Psych Problems: Yes Hx Anxiety: Yes ("occasionally") - HEMATOLOGY/ONCOLOGY Hx Hematology/Oncology Disorders: No Family Medical History Any Significant Family History?: No Family Hx Comment (NOT TO BE USED IN PLACE OF ITEMS BELOW): Pt. was adopted. Physical Exam - General General Appearance: Alert, Oriented x3, Cooperative, No acute distress, Other ( ambulates with steady gait on examination) Limitations: No limitations - Head Head exam: Atraumatic, Normocephalic, Normal inspection Head exam detail: negative: Abrasion, Contusion, Soto's sign, General tenderness, Hematoma, Laceration - Eye Eye exam: Normal appearance. negative: Conjunctival injection, Periorbital swelling, Periorbital tenderness, Scleral icterus - ENT Ear exam: negative: Auricular hematoma, Auricular trauma Nasal Exam: negative: Active bleeding, Discharge, Dried blood, Foreign body Mouth exam: negative: Drooling, Laceration, Muffled voice, Tongue elevation - Neck Neck exam: Normal inspection. negative: Meningismus, Tenderness - Respiratory Respiratory exam: Normal lung sounds bilaterally. negative: Rales, Respiratory distress, Rhonchi, Stridor - Cardiovascular Cardiovascular Exam: Regular rate, Normal rhythm, Normal heart sounds Peripheral Pulses: 3+: Dorsalis Pedis (R) - GI/Abdominal GI/Abdominal exam: Soft. negative: Rebound, Rigid, Tenderness - Rectal Rectal exam: Deferred - exam: Deferred - Extremities Extremities exam: Tenderness, Other (Mild TTP over the lateral aspect of the right foot, no pain over the ankle, strong DPP present. Compartments of the lower extremity are soft on examination.). negative: Calf tenderness, Pedal edema - Back Back exam: Denies: CVA tenderness (R), CVA tenderness (L) - Neurological Neurological exam: Alert, Normal gait, Oriented X3 - Psychiatric Psychiatric exam: Normal affect, Normal mood - Skin Skin exam: Normal color. negative: Abrasion Type of lesion: negative: abrasion Course Vital Signs 03/10/18 19:34 Temperature 98.2 F Pulse Rate [ 76 Pulse Ox Probe] Respiratory 18 Rate Blood Pressure 152/86 [Left Arm] Pulse Ox 96 - Reevaluation(s) Reevaluation #1: 03/10/18 20:23 Right foot: No acute fracture identified Osteopenia Mild degenerative changes. Patient was updated on his result, ambulates without difficulty and appears stable for discharge at this time with instructions to follow-up with his PCP in 3-5 days as directed. Disposition Disposition: Discharge Clinical Impression: Foot pain, right Disposition: Home, Self-Care Condition: (2) Stable Instructions: Arthralgia (ED) Additional Instructions: Return to ED if your symptoms worsen or if you have any concerns. Ibuprofen as directed. Follow-up with your family doctor in 3-5 days as directed. Forms: Patient Portal Access Time of Disposition: 20:24 Quality - Quality Measures Quality Measures: N/A - Blood Pressure Screening Does Patient Have Any of the Following: Active Dx of HTN Blood Pressure Classification: Pre-Hypertensive BP Reading Systolic Measurement: 152 Diastolic Measurement: 86 Screening for High Blood Pressure: Patient Exclusion, Hx of HTN [G9744]
--- NOTE | 2018-03-11 13:37 | RADIOLOGY REPORT ---
EXAM: RIGHT FOOT, THREE VIEWS HISTORY: MID TO LATERAL FOOT PAIN ONE DAY POST INJURY. TECHNIQUE: Three views of the right foot were obtained. Comparison: None. Encounter: Initial. FINDINGS: There is borderline osteopenia. No definite acute fracture, dislocation, nor destructive bone lesion is seen. There are mild degenerative changes of the first MTP joint and a few interphalangeal joints. Mild degenerative changes of the talonavicular joint are also noted dorsally. No periarticular erosion. There is a small plantar calcaneal spur. IMPRESSION: BORDERLINE OSTEOPENIA. NO ACUTE FRACTURE NOR DISLOCATION IDENTIFIED. MILD DEGENERATIVE CHANGES. SMALL PLANTAR CALCANEAL SPUR. JOB NUMBER: [id number] MTDD
== END 2018-03-10 20:29 | disposition home or self-care (01) ==
LOC: ER 19:27
DX: M79.671 Pain in right foot (principal); G89.11 Acute pain due to trauma; E11.9 Type 2 diabetes mellitus without complications; I10 Essential (primary) hypertension; F17.210 Nicotine dependence, cigarettes, uncomplicated; X50.0XXA Overexertion from strenuous movement or load, initial encounter
CPT/HCPCS: 99283; 99284

== ENCOUNTER 2018-09-03 06:32 | Emergency (ER) | payer BC ==
[2018-09-03] MEDS ORDERED: IPRATROPIUM/ALBUTEROL (0.5MG/3MG) NEB INH ONE (06:39)
--- NOTE | 2018-09-03 06:45 | Emergency Department Record ---
History of Present Illness - General Chief Complaint: Cough Stated Complaint: BRONCHITIS Time Seen by Provider: 09/03/18 06:39 Source: Patient Mode of Arrival: Ambulatory Limitations: No limitations - History of Present Illness Initial Comments: 63 yo male presents to ED for evaluation of "Bronchitis". Patient reports a history of COPD and asthma, reports that he gets bronchitis often. Patient reports that his symptoms began yesterday, reports yellow sputum. Patient denies fevers, chills, nausea, or vomiting symptoms. Patient reports "I need a Z-pack, its the only thing that helps". Patient has been using his nebulizer and albuterol inhaler at home but is asking for "the special breathing treatment they give here-I can't get a prescription for it from my doctor". MD Complaint: Cough Onset/Timin -: Hour(s) Severity: Mild Consistency: Constant Improves With: Nothing Worsens With: Nothing Associated Symptoms: Denies other symptoms Treatments Prior to Arrival: Other (Nebulizer) - Related Data Home Medications Medication Instructions Recorded Confirmed Last Taken Sitagliptin Phos/Metformin HCl 1 each PO DAILY 09/03/18 09/03/18 09/02/18 [Janumet 50-500 mg Tablet] Previous Rx's Medication Instructions Recorded Azithromycin [Zithromax] 250 mg PO DAILY #6 tab 09/03/18 Allergies Allergy/AdvReac Type Severity Reaction Status Date / Time No Known Drug Allergies Allergy Verified 11/25/16 08:24 Review of Systems Constitutional: Denies: Chills, Fever, Malaise, Night sweats Eyes: Denies: Eye discharge, Eye pain ENT: Reports: Congestion. Denies: Ear pain, Epistaxis Respiratory: Reports: Cough, Dyspnea Cardiovascular: Denies: Chest pain, Dyspnea on exertion Endocrine: Denies: Fatigue, Heat or cold intolerance Gastrointestinal: Denies: Abdominal pain, Nausea, Vomiting Genitourinary: Denies: Incontinence, Retention Musculoskeletal: Denies: Arthralgia, Back pain, Gout, Joint swelling Skin: Denies: Bruising, Change in color Neurological: Denies: Abnormal gait, Confusion, Headache, Seizure Psychiatric: Denies: Anxiety Hematological/Lymphatic: Denies: Anemia, Blood Clots Past Medical History - SOCIAL HISTORY Smoking Status: Light tobacco smoker (<10/day) - RESPIRATORY Hx Respiratory Disorders: Yes Hx Asthma: Yes (good control with meds) - CARDIOVASCULAR Hx Cardio Disorders: Yes Hx Hypertension: Yes (good control with med) - NEURO Hx Neuro Disorders: Yes Hx Dizziness: Yes (Vertigo) - GI Hx GI Disorders: Yes Hx Abdominal Pain: Yes (umbilical hernia "ruptured") - Hx Genitourinary Disorders: No - ENDOCRINE Hx Endocrine Disorders: No Hx Diabetes: Yes - MUSCULOSKELETAL Hx Musculoskeletal Disorders: Yes Hx Arthritis: Yes (hands & lt hip pain) - PSYCH Hx Psych Problems: Yes Hx Anxiety: Yes ("occasionally") - HEMATOLOGY/ONCOLOGY Hx Hematology/Oncology Disorders: No Family Medical History Family Hx Comment (NOT TO BE USED IN PLACE OF ITEMS BELOW): Pt. was adopted. Physical Exam - General General Appearance: Alert, Oriented x3, Cooperative, No acute distress Limitations: No limitations - Head Head exam: Atraumatic, Normocephalic, Normal inspection Head exam detail: negative: Abrasion, Contusion, Soto's sign, General tenderness, Hematoma, Laceration - Eye Eye exam: Normal appearance. negative: Conjunctival injection, Periorbital swelling, Periorbital tenderness, Scleral icterus - ENT Ear exam: negative: Auricular hematoma, Auricular trauma Nasal Exam: negative: Active bleeding, Discharge, Dried blood, Foreign body Mouth exam: negative: Drooling, Laceration, Muffled voice, Tongue elevation - Neck Neck exam: Normal inspection. negative: Meningismus, Tenderness - Respiratory Respiratory exam: Decreased breath sounds. negative: Rales, Respiratory distress, Rhonchi, Stridor - Cardiovascular Cardiovascular Exam: Regular rate, Normal rhythm, Normal heart sounds - GI/Abdominal GI/Abdominal exam: Soft. negative: Rebound, Rigid, Tenderness - Rectal Rectal exam: Deferred - exam: Deferred - Extremities Extremities exam: Normal inspection. negative: Pedal edema, Tenderness - Back Back exam: Denies: CVA tenderness (R), CVA tenderness (L) - Neurological Neurological exam: Alert, Normal gait, Oriented X3 - Psychiatric Psychiatric exam: Normal affect, Normal mood - Skin Skin exam: Normal color. negative: Abrasion Type of lesion: negative: abrasion Course Vital Signs 09/03/18 06:38 Temperature 97.7 F Pulse Rate [ 64 Pulse Ox Probe] Respiratory 20 Rate Blood Pressure 169/98 [Left Arm] Pulse Ox 95 - Reevaluation(s) Reevaluation #1: 09/03/18 06:45 Patient was seen and examined, duoneb ordered per patient request. Patient is otherwise well appearing and stable for discharge at this time with instructions to follow-up with his PCP in 3-5 days as directed. Disposition Disposition: Discharge Clinical Impression: Acute bronchitis Qualifiers: Bronchitis organism: unspecified organism Qualified Code(s): J20.9 - Acute bronchitis, unspecified Disposition: Home, Self-Care Condition: (2) Stable Instructions: Acute Bronchitis (ED) Additional Instructions: Return to ED if your symptoms worsen or if you have any concerns. Zithromax as directed. Follow-up with your family doctor in 3-5 days as directed. Prescriptions: Azithromycin [Zithromax] 250 mg PO DAILY #6 tab Time of Disposition: 06:44 Quality - Quality Measures Quality Measures: N/A - Blood Pressure Screening Does Patient Have Any of the Following: Active Dx of HTN Blood Pressure Classification: Hypertensive Reading Systolic Measurement: 169 Diastolic Measurement: 98 Screening for High Blood Pressure: Patient Exclusion, Hx of HTN [[id number]]
== END 2018-09-03 06:57 | disposition home or self-care (01) ==
LOC: ER 06:32
DX: J20.9 Acute bronchitis, unspecified (principal); F17.210 Nicotine dependence, cigarettes, uncomplicated
CPT/HCPCS: 94640; 99283

== ENCOUNTER 2019-08-28 06:55 | Day surgery (SDC) | payer BC, MEDICARE ==
[2019-08-28] MEDS ORDERED: PROPOFOL 10 MG/ML VIAL IV ONE (06:56)
[2019-08-28] MEDS ORDERED: LIDOCAINE 2% MDV (20MG/ML) 20ML VIAL IV ONE (06:56)
--- NOTE | 2019-08-28 14:10 | Operative Note ---
OPERATION: COLONOSCOPY. PREOPERATIVE DIAGNOSIS: Personal history of colon polyps and history of fair colonic preparation. POSTOPERATIVE DIAGNOSIS: Sigmoid diverticulosis. PREPARATION QUALITY: Good at best. ESTIMATED BLOOD LOSS: None. SPECIMENS: None. COMPLICATIONS: None. PROCEDURE: After informed consent was obtained from the patient, he was placed in the left lateral decubitus position in the endoscopy suite, sedated and monitored by the department of anesthesia. Digital rectal exam was unremarkable. A well-lubricated [id number] colonoscope was inserted into the rectum and advanced to the cecum. The cecum, cecal bulb, ileocecal valve, terminal ileum, ascending colon, transverse colon, descending colon, sigmoid colon, and rectum were free of inflammatory changes, mass lesions, or polyps. There were [id number] diverticular changes noted. No polyps or mass lesions were seen. No inflammation was seen. Forward and J-turn views of the rectum and anorectum were unrevealing. The endoscope was straightened, the rectal ampulla deflated, and the endoscope was removed. RECOMMENDATIONS: I would suggest the patient follow a high-fiber diet. Recommend a repeat exam in 5 years. As always, thank you for allowing me to participate in the healthcare of your patients. PAMELA
== END 2019-08-28 08:51 | disposition home or self-care (01) ==
LOC: HOP 06:55
PROVIDERS: ATTEND Internal Medicine Gastroenterology
DX: Z09 Encounter for follow-up examination after completed treatment for conditions other than malignant neoplasm (principal); Z86.010 Personal history of colon polyps; K57.30 Diverticulosis of large intestine without perforation or abscess without bleeding; I10 Essential (primary) hypertension; E78.00 Pure hypercholesterolemia, unspecified; E11.9 Type 2 diabetes mellitus without complications; J44.9 Chronic obstructive pulmonary disease, unspecified